=== PATIENT | male | born 1965 | race Caucasian/White ===

== ENCOUNTER 2019-11-05 11:55 | Emergency (ER) | payer OTHER ==
[2019-11-05 12:41] LABS: ABSOLUTE EOSINOPHILS # (AUTO) 0.4 10^3/uL (0.0-0.6); ABSOLUTE MONOCYTES (AUTO) 1.3 10^3/uL (0.1-1.4); ABSOLUTE NEUT (AUTO) 7.2 10^3/uL (1.7-8.2); BASOPHILS % (AUTO) 0.3 % (0-2); EOSINOPHILS % (AUTO) 3.8 % (0-6); HEMATOCRIT 43.7 % (37.9-51.0); HEMOGLOBIN 15.2 g/dL (13.5-17.0); MEAN CORPUSCULAR HEMOGLOBIN 30.9 pg (27.0-33.4); MEAN CORPUSCULAR HGB CONC 34.7 g/dL (32.0-36.0); MEAN CORPUSCULAR VOLUME 89 fl (80-97); MONOCYTES % (AUTO) 12.9 % (3-13); PLATELET COUNT 165 10^3/uL (150-450); RED BLOOD COUNT 4.91 10^6/uL (4.35-5.55); RED CELL DISTRIBUTION WIDTH 12.8 % (11.5-14.0); TOTAL CELLS COUNTED % (AUTO) 100 %; WHITE BLOOD COUNT 9.9 10^3/uL (4.0-10.5)
[2019-11-05 13:00] LABS: ALBUMIN 4.3 g/dL (3.5-5.0); ALKALINE PHOSPHATASE 76 U/L (38-126); ANION GAP 6 (5-19); ASPARTATE AMINO TRANSFERASE 21 U/L (17-59); BILIRUBIN,DIRECT 0.2 mg/dL (0.0-0.4); BILIRUBIN,TOTAL 0.7 mg/dL (0.2-1.3); BLOOD UREA NITROGEN 16 mg/dL (7-20); CALCIUM 8.8 mg/dL (8.4-10.2); CARBON DIOXIDE 28 mmol/L (22-30); CHLORIDE 104 mmol/L (98-107); CREATINE KINASE 115 U/L (55-170); GLUCOSE 101 mg/dL (75-110); TOTAL PROTEIN 6.9 g/dL (6.3-8.2)
--- NOTE | 2019-11-05 13:00 | ER Document Report ---
ED General - General Stated Complaint: DIZZINESS Time Seen by Provider: 11/05/19 13:00 Primary Care Provider: DEMETRIO LORENZANA MD [Primary Care Provider] - Follow up in 3-5 days (prn) - HPI Context: 54-year-old male with a history of a left bundle branch block who had a defibrillator placed [address] Jose Hernández, neurophysiologist at [facility] for heart failure, who then had a pacemaker placed on p resents to the emergency room with dizziness and tunnel vision episode that lasted for approximately 30 minutes, since he looked at his paperwork and it said that if any dizziness occurred to go directly to the emergency room, he called EMS. EMS gave him a liter of fluids which completely resolved his dizziness. Patient denies any chest pain, shortness of breath, chest tightness, any numbness or tingling to his face, down his arms, denies any weakness, states that all of his symptoms did completely resolve. Dizziness protocol was established prior to picking up the chart, patient's troponin did come back 0.069. Patient states when he had shortness of breath back in March, they established that he did have a left bundle branch block and only had 16% of his heart functioning, this is when they decided to have a IUD placed. Patient did have a nuclear stress test which did not show any blockages in his heart in March 2019. patient's sandblast operator is Dr. Sandoval at [place]. Denies fevers, chills, chest pain,palpitations, shortness of breath, dyspnea, nausea, vomiting, diarrhea, abdominal pain, hematuria,, double vision, loss of vision, speech changes, LH, syncope, headaches, wheezing, ST, URI, neck pain, weakness, bowel or bladder dysfunction, saddle anesthesia, numbness or tingling in bilateral upper or lower extremities equally, muscle paralysis, weakness in bilateral upper or lower extremities equally or rash. Denies IV drug use. MEDICATIONS: I agree with the patient medications as charted by the RN. ALLERGIES: I agree with the allergies as charted by the RN. PAST MEDICAL HISTORY/PAST SURGICAL HISTORY: Reviewed and agree as charted by RN. SOCIAL HISTORY: Reviewed and agree as charted by RN. FAMILY HISTORY: No significant familial comorbid conditions directly related to patient complaint EXAM: Reviewed vital signs as charted by RN. REVIEW OF SYSTEMS:reviewed vital signs by RN CONSTITUTIONAL : Denies fever, chills, or sweats. Denies recent illness. EENT: Denies eye, ear, throat, or mouth pain or symptoms. Denies nasal or sinus congestion or discharge. Denies throat, tongue, or mouth swelling or difficulty swallowing. CARDIOVASCULAR: Denies chest pain. Denies palpitations or racing or irregular heart beat. Denies ankle edema. RESPIRATORY: Denies cough, cold, or chest congestion. Denies shortness of breath, difficulty breathing, or wheezing. GASTROINTESTINAL: Denies abdominal pain or distention. Denies nausea, vomiting, or diarrhea. Denies blood in vomitus, stools, or per rectum. Denies black, tarry stools. Denies constipation. GENITOURINARY: Denies difficulty urinating, painful urination, burning, frequency, blood in urine, or discharge. MUSCULOSKELETAL: Denies back or neck pain or stiffness. Denies joint pain or swelling. SKIN: Denies rash, lesions or sores. HEMATOLOGIC : Denies easy bruising or bleeding. LYMPHATIC: Denies swollen, enlarged glands. NEUROLOGICAL: Reports dizziness and lightheadedness that resolved prior to coming to the emergency room denies confusion or altered mental status. Denies passing out or loss of consciousness. Denies dizziness or lightheadedness. Denies headache. Denies weakness or paralysis or loss of use of either side. Denies problems with gait or speech. Denies sensory loss, numbness, or tingling. Denies seizures. PSYCHIATRIC: Denies anxiety or stress. Denies depression, suicidal ideation, or homicidal ideation. ALL OTHER SYSTEMS REVIEWED AND NEGATIVE. Dictation was performed using [employer] voice recognition software PHYSICAL EXAMINATION: GENERAL: Well-appearing, well-nourished and in no acute distress. HEAD: Atraumatic, normocephalic. EYES: Pupils equal round and reactive to light, extraocular movements intact, sclera anicteric, conjunctiva are normal. ENT: Nares patent, oropharynx clear without exudates. Moist mucous membranes. NECK: Normal range of motion, supple without lymphadenopathy LUNGS: Breath sounds clear to auscultation bilaterally and equal. No wheezes rales or rhonchi. HEART: Regular rate and rhythm without murmurs ABDOMEN: Soft, nontender, nondistended abdomen. No guarding, no rebound. No masses appreciated. Musculoskeletal: Normal range of motion, no pitting or edema. No cyanosis. NEUROLOGICAL: Cranial nerves grossly intact. Normal speech, normal gait. Normal sensory, motor exams. PERRLA, EOMI. Full motor and sensory function throughout. Beam Saw Operator + 2 equal bilaterally in BUE. Tongue midline. No pronator dri ft. No ataxia. Neck with APROM. Raises eyebrows. Strength is 5 out of 5 in bilateral upper and lower extremities equally.Speaks in full sentences. No weakness on one side. Romberg gait steady able to walk straight line. Able to recall 5 objects. PSYCH: Normal mood, normal affect. SKIN: Warm, Dry, normal turgor, no rashes or lesions noted. - Related Data Allergies/Adverse Reactions: No Known Allergies Allergy (Unverified 11/05/19 12:33) Past Medical History - General Information source: Patient, Relative - Social History Smoking Status: Unknown if Ever Smoked Family History: Reviewed & Not Pertinent Physical Exam - Vital signs Vitals: Temp 98.4 F 11/05/19 11:55 Course - Re-evaluation Re-evalutation: 11/05/19 14:20 Afebrile vital stable no distress. Nurses notes reviewed. CBC negative for leukocytosis or anemia, CMP negative for hepatic or renal dysfunction, no electrolyte disturbances. Troponin is 0.069. He is denying any chest pain, shortness of breath, chest tightness, denies any angina. Orthostatics are completely normal. Consulted with Dr. Abel Beth MD, PhD is an Quality Reviewer at [facility] at 1412 regarding patient's presentation of dizziness that started in tunnel vision, he was given IV fluids and EMS which has dizziness had resolved, as well as having a troponin of 0.069. Patient is having no chest pain, no shortness of breath no chest tightness. Dr. Beth stated that patient had defibrillator placed on , he did a full review of the chart and he felt that since he had been n.p.o. prior to his procedure, he did have a longer procedure that this is likely due to dehydration as well as having some myoc ardial stress with the fact that he is not having any anginal symptoms. He advised the patient call the office on Thursday to make an appointment. Patient is completely asymptomatic at this time. Vitals are stable. His EKG does show a paced rhythm. Repeat troponin shows 0.078. Consulted with Dr. Margarito Abrams, ER supervising physician who stated that he likely has dilated cardiomyopathy and will likely always be leaking his troponins, do not have a baseline troponin to compare this to. Patient is completely asymptomatic, does not have any angina, no chest pain no shortness of breath. While patient has been in the emergency room here for over 4 hours, patient has not had any chest pain or shortness of breath. Advised to follow-up with rn gastroenterology and call on Thursday. Patient given strict instructions to return to the emergency room if he experiences any chest pain, chest tightness, shortness of breath, numbness or tingling down his arms legs face, slurred speech, double vision, change in vision, fever, dizziness, lightheadedness etc. After performing a Medical Screening Examination, I estimate there is LOW risk for INTRACRANIAL HEMORRHAGE, ISCHEMIC CVA, MALIGNANT DYSRHYTHMIA, ACUTE CORONARY SYNDROME, MENINGITIS, PULMONARY EMBOLISM, or SEPSIS thus I consider the discharge disposition reasonable. I have reevaluated this patient multiple times and no significant life threatening changes are noted. The patient and I have discussed the diagnosis and risks, and we agree with discharging home with close follow-up with the understanding that symptoms and presentations can change. We also discussed returning to the Emergency Department immediately if new or worsening symptoms occur. We have discussed the symptoms which are most concerning (e.g., changing or worsening pain, weakness, vomiting, fever) that necessitate immediate return. 11/05/19 17:02 - Vital Signs Vital signs: Temp Pulse Resp BP Pulse Ox 98.4 F 80 14 122/74 97 11/05/19 11:55 11/05/19 14:19 11/05/19 11:57 11/05/19 14:19 11/05/19 11:57 - Laboratory Result Diagrams: 11/05/19 12:30 11/05/19 12:30 Laboratory results interpreted by me: 11/05/19 11/05/19 12:30 12:45 Lymph % (Auto) 10.0 L Urine Blood SMALL H - EKG Interpretation by Me Additional EKG results interpreted by me: 11/05/19 16:28 Patient's an EKG shows a heart rate of 87bpm, ventricular paced rhythm, P axis 180, QT at 416, no STEMI Discharge - Discharge Clinical Impression: Dizziness, Recent ICD implantation Condition: Stable Disposition: HOME, SELF-CARE Instructions: Dizziness ([facility]) Additional Instructions: Dr. Jose Hernández, Biomedical Manager Address: [address] [place] [address] [address], [place] [address] Please call their office on Thursday to make an appointment for follow-up. If you experience any chest pain, shortness of breath, worsening dizziness, lightheadedness, blurred vision, double vision, loss of vision, weakness etc. please return to the emergency room immediately. Return immediately for any new or worsening symptoms. Follow up with primary care provider, call tomorrow to make followup appointment. Referrals: DEMETRIO LORENZANA MD [Primary Care Provider] - Follow up in 3-5 days (prn)
[2019-11-05 13:05] LABS: APPEARANCE,URINE CLEAR; BILIRUBIN,URINE NEGATIVE (NEGATIVE); COLOR,URINE COLORLESS; GLUCOSE, URINE NEGATIVE (NEGATIVE); KETONES,URINE NEGATIVE (NEGATIVE); LEUKOCYTE ESTERASE,URINE NEGATIVE (NEGATIVE); NITRITE,URINE NEGATIVE (NEGATIVE); PROTEIN,URINE NEGATIVE (NEGATIVE); URINE SPECIFIC GRAVITY 1.005; UROBILINOGEN,URINE NEGATIVE mg/dL (<2.0)
[2019-11-05 13:12] LABS: CREATINE KINASE MB 0.97 ng/mL (<4.55)
[2019-11-05 13:14] LABS: TROPONIN I 0.069 ng/mL
--- NOTE | 2019-11-05 17:06 | EKG REPORT ---
SEVERITY:- ABNORMAL ECG - ATRIAL-SENSED VENTRICULAR-PACED RHYTHM : Confirmed by: Sandi Weaver 05-Nov-2019 17:05:55
[2019-11-05 17:18] VITALS: BP 123/75
== END 2019-11-05 17:25 | disposition home or self-care (01) ==
LOC: ER 11:55
DX: R42 Dizziness and giddiness (principal); H53.489 Generalized contraction of visual field, unspecified eye; Z95.810 Presence of automatic (implantable) cardiac defibrillator
CPT/HCPCS: 36415; 80053; 81001; 82550; 82553; 84484; 85025; 93005; 93010; 99284